=== PATIENT | male | born 1940 | race African-American/Black ===

== ENCOUNTER 2016-10-08 12:53 | Observation (INO) | payer MEDICARE, OTHER ==
[2016-10-08] VITALS (14 sets, daily range): BP systolic 131–162; BP diastolic 61–90; PULSE 65–77; TEMP 97–98.4
[~2016-10-08] VITALS: Ht 180.3 cm; Wt 117.3 kg
[~2016-10-08 12:53] MED LIST: ADALAT CC90 MG PO; ASPIRIN 32325 MG/TAB PO; CLOPIDOGREL75 MG PO; GLUCOTROL10 MG PO; IMDUR60 MG PO; ISOTRATE ER60 MG PO; JANUMET 1000 MG1 TAB; JANUVIA 100MG100 MG PO; JANUVIA100 MG PO; LIPITOR 40MG TA40 MG PO; LISINOPRIL40 MG PO; METFORMIN500 MG PO; MICARDIS HCT 121 TA1 PO; MICARDIS HCT 251 TAB PO; MULTI VITAMINS1 TAB PO; MULTIPLE VITAMI1 CAP PO; NIASPAN500 MG PO; OMEGA 31000 MG PO; OMEGA-31000 MG PO; PLAVIX 75MG TAB75 MG PO; PROCARDIA XL90 MG PO; ZOCOR80 MG PO
[2016-10-08] MEDS ORDERED: OMEGA-31 SGL PO (14:44)
[2016-10-08] MEDS ORDERED: IMDUR 60MG60 MG/TAB PO (14:47)
[2016-10-08] MEDS ORDERED: SYNTHROID0.05 MG/TA PO (15:50)
[2016-10-08] MEDS ORDERED: TOPROL XL 50MG50 MG PO (15:51)
[2016-10-08] MEDS ORDERED: ASPIRIN E.C. 8181 MG PO (15:52)
[2016-10-08] MEDS ORDERED: BYDUREON P2 MG/0.65 (15:53)
[2016-10-08] MEDS ORDERED: NITROSTAT0.4 MG/TAB SL (15:54)
[2016-10-08] MEDS ORDERED: CORTISPORIN OIN15 GM TP (15:55)
[2016-10-08] MEDS ORDERED: LEVEMIR100 U/ML SQ (16:03)
[2016-10-08 22:47] LABS: INFLUENZA B NEGATIVE
[2016-10-09 00:53] LABS: PH 6 (5-8); URINE APPEARANCE Clear; URINE BILIRUBIN Negative (NEGATIVE); URINE BLOOD Negative (NEGATIVE); URINE COLOR Yellow; URINE GLUCOSE Negative (NEGATIVE); URINE KETONE Negative (NEGATIVE); URINE UROBILINOGEN Negative (NEGATIVE)
[2016-10-09 02:38] LABS: SQUAMOUS EPITHELIAL 0-2 /hpf; URINE BACTERIA None Seen /hpf; URINE RBC 0-2 /hpf; URINE WBC 0-2 /hpf
[2016-10-09 03:36] VITALS: BP 152/64; PULSE 77; TEMP 98.4
[2016-10-09 08:42] VITALS: BP 104/72; PULSE 76; TEMP 97.6
[2016-10-09 08:42] LABS: BASO % 0.5 % (0.0-2.0); EOS # 0.2 (0.0-0.7); GRAN # 3.8 (1.4-6.5); HEMATOCRIT 38.9 % (42.0-52.0); LYMPH # 1.1 (1.2-3.4); LYMPH % 19.2 % (20.0-51.0); MEAN CELL VOLUME 87 fl (80.0-100.0); MEAN CORPUSCULAR HEMOGLOBIN 29 pg (27.0-31.0); MEAN CORPUSCULAR HGB CONC 33 g/dl (33.0-37.0); MEAN PLATELET VOLUME 11.8 fl (7.4-10.4); MONO # 0.6 (0.1-0.6); MONO % 9.8 % (1.7-9.3); PLATELET COUNT 136 K/mm3 (130-400); RED BLOOD COUNT 4.49 M/mm3 (4.20-5.60); REDCELL DISTRIBUTION WIDTH-CV 13.1 % (11.5-14.5); WHITE BLOOD COUNT 5.8 K/mm3 (4.8-10.8)
[2016-10-09 08:55] LABS: ADJUSTED CALCIUM 9.6 mg/dL (8.4-10.2); ALBUMIN 3.7 gm/dL (3.5-5.0); BILIRUBIN,TOTAL 0.9 mg/dL (0.0-1.0); CALCIUM 9.4 mg/dL (8.4-10.2); CREATININE, serum 1.15 mg/dL (0.66-1.25); POTASSIUM 4.1 mmol/L (3.4-5.0)
[2016-10-09 09:25] LABS: THYROID STIMULATING HORMONE 3.28 uIU/mL (0.465-4.680)
[2016-10-09] MEDS ORDERED: PLAVIX 75MG TAB75 MG PO (10:29)
[2016-10-09] MEDS ORDERED: PROCARDIA XL90 MG PO (10:31)
[2016-10-09 12:57] VITALS: BP 101/61; PULSE 69; TEMP 98.4
== END 2016-10-09 14:35 | disposition home or self-care (01) ==
LOC: PEDS 12:53 → MEDICAL 12:53 → PEDS 13:40 → MEDICAL 13:40
PROVIDERS: Physician Assistant
DX: R53.83 Other fatigue (principal); I25.10 Atherosclerotic heart disease of native coronary artery without angina pectoris; I10 Essential (primary) hypertension; E78.5 Hyperlipidemia, unspecified; E11.8 Type 2 diabetes mellitus with unspecified complications; Z79.4 Long term (current) use of insulin; E03.9 Hypothyroidism, unspecified
CPT/HCPCS: 99222-AI; C1769; C1887; C1894; G0378; G0379; J1644; J1815; J2250; J3010; J7030; Q9967

== ENCOUNTER → 2021-07-10 | Outpatient (CLI) | payer MEDICARE, OTHER ==
[~2021-07-10] MED LIST changes: +ASPIRIN E.C. 8181 MG PO; +BYDUREON P2 MG/0.65; +CORTISPORIN OIN15 GM TP; +IMDUR 60MG60 MG/TAB PO; +LEVEMIR100 U/ML SQ; +NITROSTAT0.4 MG/TAB SL; +OMEGA-31 SGL PO; +SYNTHROID0.05 MG/TA PO; +TOPROL XL 50MG50 MG PO
== END ==
LOC: COL.VAS 14:01
DX: H47.013 Ischemic optic neuropathy, bilateral (principal); I65.23 Occlusion and stenosis of bilateral carotid arteries

== ENCOUNTER → 2023-08-13 | Outpatient (CLI) | payer MEDICARE, OTHER | LOC: COL.VAS 12:33 | DX: I65.23 Occlusion and stenosis of bilateral carotid arteries (principal); I08.0 Rheumatic disorders of both mitral and aortic valves; H34.9 Unspecified retinal vascular occlusion; H34.219 Partial retinal artery occlusion, unspecified eye ==

== ENCOUNTER 2024-07-28 20:29 | Inpatient (IN) | payer MEDICARE, OTHER ==
[~2024-07-28] VITALS: Ht 177.8 cm; Wt 95.9 kg
[2024-07-28 21:00] LABS: BASO % 0.2 % (0.0-2.0); EOS # 0.1 K/mm3 (0.0-0.7); EOS % 2.2 % (0.0-4.0); GRAN # 3.3 K/mm3 (1.4-6.5); GRAN % 58.9 % (42.2-75.2); HEMATOCRIT 40.7 % (42.0-52.0); LYMPH # 1.5 K/mm3 (1.2-3.4); LYMPH % 27.3 % (20.0-51.0); MEAN CELL VOLUME 93 fl (80.0-100.0); MEAN CORPUSCULAR HEMOGLOBIN 32 pg (27-31); MEAN CORPUSCULAR HGB CONC 34 g/dl (33.0-37.0); MEAN PLATELET VOLUME 10.9 fl (7.4-10.4); MONO # 0.6 K/mm3 (0.1-0.6); MONO % 11.2 % (1.7-9.3); PLATELET COUNT 106 K/mm3 (130-400); RED BLOOD COUNT 4.36 M/mm3 (4.20-5.60); REDCELL DISTRIBUTION WIDTH-CV 12.7 % (11.5-14.5)
[2024-07-28 21:02] LABS: INR 1.1 (0.8-3.0); PROTHROMBIN TIME 11.9 SECONDS (9.7-12.8)
[2024-07-28 21:17] LABS: ALBUMIN 3.8 g/dL (3.4-4.8); BILIRUBIN,TOTAL 0.8 mg/dL (0.2-1.2); CALCIUM 9.1 mg/dL (8.4-10.2); CREATININE, serum 1.26 mg/dL (0.72-1.25); POTASSIUM 4.2 mEq/L (3.5-4.5)
[2024-07-28 21:23] LABS: TROPONIN-I 0.02 ng/mL (0.00-0.033)
[2024-07-28] MEDS ORDERED: LR 1,000 ML IV ONE (21:30)
[2024-07-28] MEDS ORDERED: diphenhydrAMINE 50 MG/ML 1 ML VIAL IV ONE (21:30)
[2024-07-28] MEDS ORDERED: Iohexol 350 - 100 ML VIAL IV ONE (21:32)
[2024-07-28] MEDS ORDERED: NS 100 ML IV ONE (21:33)
[2024-07-28 22:45] LABS: URINE APPEARANCE CLEAR (CLEAR/HAZY); URINE BLOOD NEGATIVE (NEGATIVE); URINE COLOR YELLOW (YELLOW); URINE GLUCOSE NEGATIVE (NEGATIVE); URINE KETONE NEGATIVE (NEGATIVE); URINE NITRATE NEGATIVE (NEGATIVE); URINE PROTEIN(semi-quant) NEGATIVE (NEGATIVE)
[2024-07-28 22:55] LABS: TRICYCLIC ANTIDEPRESS URINE NEGATIVE (NEGATIVE)
[2024-07-28 22:56] LABS: COLLECTION METHOD CLEAN CATCH
[2024-07-29] VITALS (1192 sets, daily range): BP systolic 131–208; BP diastolic 56–93; PULSE 56–76; TEMP 97.3–98.4; O2SAT 77–100
[2024-07-29] MEDS ORDERED: Acetaminophen 325 MG TAB PO PRN ×2 (00:30→03:45)
[2024-07-29] MEDS ORDERED: Docusate Sodium 100 MG CAP PO PRN (00:30)
--- NOTE | 2024-07-29 00:56 | NUR ---
report recived from ED.
[2024-07-29] MEDS ORDERED: hydrALAZINE 20 MG/ML 1 ML VIAL IV ONE ×2 (01:00→20:15)
[2024-07-29] MEDS ORDERED: SYNTHROID0.075 MG/T PO (01:12)
[2024-07-29] MEDS ORDERED: LIPITOR 80MG80 MG PO (01:15)
[2024-07-29] MEDS ORDERED: BYDUREON B2 MG/0.85 SQ (01:17)
[2024-07-29] MEDS ORDERED: REPATHA SU140 MG/1 M SQ (01:17)
[2024-07-29] MEDS ORDERED: HUMIRA40 MG/0.4 SQ (01:18)
[2024-07-29] MEDS ORDERED: niCARdipine 200 ML IV SCH (01:45)
[2024-07-29] MEDS ORDERED: MICARDIS80 MG PO (02:48)
[2024-07-29] MEDS ORDERED: TOPROL XL100 MG PO (02:48)
[2024-07-29] MEDS ORDERED: NS 1,000 ML IV SCH (03:45)
[2024-07-29] MEDS ORDERED: Ondansetron 4 MG/2 ML VIAL IV PRN (03:45)
[2024-07-29] MEDS ORDERED: Dextrose 50% Water 25 GM/50 ML SYRINGE IV PRN (04:00)
[2024-07-29] MEDS ORDERED: Dextrose (Glucose) 15 GM (4 x 3.75 GM) Chewable TABLET PACK PO PRN (04:00)
[2024-07-29] MEDS ORDERED: Glucagon 1 MG VIAL IM PRN (04:00)
[2024-07-29 05:42] LABS: BASO % 0.3 % (0.0-2.0); EOS # 0.1 K/mm3 (0.0-0.7); EOS % 1.4 % (0.0-4.0); GRAN # 4.4 K/mm3 (1.4-6.5); GRAN % 63.6 % (42.2-75.2); HEMOGLOBIN 12.4 g/dl (13.5-18.0); LYMPH # 1.6 K/mm3 (1.2-3.4); LYMPH % 22.9 % (20.0-51.0); MEAN CELL VOLUME 91 fl (80.0-100.0); MEAN CORPUSCULAR HEMOGLOBIN 33 pg (27-31); MEAN CORPUSCULAR HGB CONC 36 g/dl (33.0-37.0); MEAN PLATELET VOLUME 11.1 fl (7.4-10.4); MONO # 0.8 K/mm3 (0.1-0.6); MONO % 11.7 % (1.7-9.3); PLATELET COUNT 93 K/mm3 (130-400); RED BLOOD COUNT 3.82 M/mm3 (4.20-5.60); REDCELL DISTRIBUTION WIDTH-CV 12.6 % (11.5-14.5)
[2024-07-29 05:58] LABS: HEMATOCRIT 34.9 % (42.0-52.0)
[2024-07-29 06:07] LABS: ALBUMIN 3.1 g/dL (3.4-4.8); BILIRUBIN,TOTAL 0.4 mg/dL (0.2-1.2); CALCIUM 8.6 mg/dL (8.4-10.2); CHOLESTEROL RISK RATIO 3.2; CREATININE, serum 1.12 mg/dL (0.72-1.25); POTASSIUM 3.8 mEq/L (3.5-4.5); TOTAL PROTEIN 5.9 g/dl (6.2-8.1)
--- NOTE | 2024-07-29 07:00 | NUR ---
Report recieved from HUANG Brown. Reviewed labs and overnight events. Pt resting in bed with eyes closed. IVF infusing per orders. Call light within reach. Will continue with POC.
[2024-07-29] MEDS ORDERED: Insulin Lispro (HumaLOG) SQ SCH (08:00)
[2024-07-29] MEDS ORDERED: Losartan 50 MG TAB PO SCH (09:00)
[2024-07-29] MEDS ORDERED: Telmisartan 80 MG **** subs to Losartan 100 MG PO SCH (09:00)
[2024-07-29] MEDS ORDERED: Atorvastatin 80 MG TAB PO SCH (09:00)
[2024-07-29] MEDS ORDERED: Omega-3 Fatty Acid Esters (OTC) 1,000 MG CAP PO SCH (09:00)
[2024-07-29] MEDS ORDERED: Multivitamin TAB PO SCH (09:00)
[2024-07-29] MEDS ORDERED: hydroCHLOROthiazide 25 MG TAB PO SCH (09:00)
[2024-07-29] MEDS ORDERED: Clopidogrel 75 MG TAB PO SCH (09:00)
[2024-07-29] MEDS ORDERED: hydrALAZINE 10 MG TAB PO PRN (10:30)
--- NOTE | 2024-07-29 14:15 | NUR ---
Plate Molder met with patient and his , Bambi to discuss discharge planning. Patient lives in [place] and sees Dr. Rogers for primary care. Patient gets medications from [facility]. Patient is independent with ADLS and stated he has a cane that he uses occasionally. Patient reported his , Babmi is his DPOA-HC. Patient advised he plans to return home at time of discharge. SW reviewed PT recommendation for Home Health and provided [email or web address] list of available agencies. Patient unsure on if he is interested at this time but will consider it. Discharge Plan: Home, possible HH
--- NOTE | 2024-07-29 19:30 | NUR ---
PT RESTING IN BED. AFIB ON MONITOR. PT HAS BEEN HTN STARTING LATE AFTERNOON. PT TAKES NOT SCHEDULED ORAL ANTIHYPERTENSIVES AT NIGHT. PT MAY BENEFIT FROM CA++ [facility]. HAS PRN FOR SBP GREATER THAN 180.
--- NOTE | 2024-07-29 20:09 | NUR ---
AT BEDSIDE. SHE HAVE PT A SPONGE BATH AT THE SINK WHILE I CHANGED HIS BEDDING. PT BP ELEVATED, PROVIDER NOTIFIED. DISCUSSED ADDING CA[facility] AT NIGHT. ORDERS RECEIVED. WILL CONTINUE TO MONITOR BP. PT WAS HAD A SHORT RUN OF AFIB. IF IT HAPPENS AGAIN, WILL GET ECG. PT STATES HE WANTS TO GO HOME TOMORROW. WILL TRY TO CONTROL BP WITH PRN AND SCHEDULED MEDICATIONS. DISCUSSED WITH PT THAT I WILL START THE DRIP IF I NEED TO.
[2024-07-29] MEDS ORDERED: amLODIPine 5 MG TAB PO SCH (21:00)
[2024-07-30] VITALS (439 sets, daily range): BP systolic 134–181; BP diastolic 70–89; PULSE 67–75; TEMP 97.3–97.6; O2SAT 78–100
--- NOTE | 2024-07-30 06:05 | NUR ---
PT HYPERTENSIVE AT THE START OF SHIFT. MEDICATIONS ADJUSTED. BLOOD PRESSURE IMPROVED. PT AND SPOUSE STATE THEY WERE NOT AWARE HE HAD A HEART MURMER. PRINTED PATIENT EDUCATION ON: HEART MURMURS, AMLODIPINE, HYDROCHLOROTHIAZIDE & HIGH BLOOD PRESSURE IN ADULTS GIVEN MRS. VERDIN. PT HAS VISION LOSS. THIS NURSE DISCUSSED WITH MR. VERDIN THAT THE REASON HE IS URINATING FREQUENTLY IS BECAUSE OF THE HYDROCHLOROTHIAZIDE. PT STABLE ON ROUNDS. RESPIRATIONS EVEN AND UNLABORED. NO SIGN OF DISTRESS AT THIS TIME. CONTINUE PLAN OF CARE.
--- NOTE | 2024-07-30 07:23 | NUR ---
Report recieved from HUANG Ellis. Reviewed overnight events. No IVF infusing at this time. Pt resting with eyes closed. Call light within reach. Will continue with POC.
[2024-07-30] MEDS ORDERED: Gadoterate 20 ML VIAL IV ONE (09:09)
--- NOTE | 2024-07-30 09:22 | NUR ---
Pt left floor at 0855 for MRI and Echo.
--- NOTE | 2024-07-30 09:46 | NUR ---
Pt returned from MRI and ECHO in room to complete.
[2024-07-30] MEDS ORDERED: hydrALAZINE 25 MG TAB PO SCH (10:01)
[2024-07-30] MEDS ORDERED: NORVASC 10MG10 MG PO (12:19)
[2024-07-30] MEDS ORDERED: HCTZ 25MG TAB25 MG PO (12:19)
[2024-07-30] MEDS ORDERED: APRESOLINE 10MG10 MG PO (12:22)
--- NOTE | 2024-07-30 12:34 | NUR ---
D: Municipal Clerk stopped by room on rounds. A: Pt was resting and content. Pt is retired and worked many years at [employer]. Pt appreciated the visit. No needs right now. P: Municipal Clerk informed pt that if he needed anything from the electroplater automatic area to let his nurse know. Municipal Clerk will follow up as needed.
--- NOTE | 2024-07-30 14:15 | NUR ---
Discharge instructions provided. Education about new medications provided. Unable to make follow up appoinments, stressed importance of scheudling f/u next week. Pt and verbalized understanding. INT discontinued. Pt escorted out via wheelchair.
[2024-07-30] MEDS ORDERED: amLODIPine 10 MG TAB PO SCH (21:00)
== END 2024-07-30 13:57 | disposition home or self-care (01) | DRG 305 ==
LOC: COL.ER 20:29 → ICU 07-29 00:07 → MEDICAL 07-29 00:07 → COL.ER 07-29 00:07 → ICU 07-29 01:34
PROVIDERS: Emergency Medicine; Nurse Practitioner Family; ADMIT Internal Medicine
DX: I16.1 Hypertensive emergency (principal); E87.20 Acidosis, unspecified; E78.5 Hyperlipidemia, unspecified; I25.10 Atherosclerotic heart disease of native coronary artery without angina pectoris; Z95.5 Presence of coronary angioplasty implant and graft; M06.9 Rheumatoid arthritis, unspecified; E03.9 Hypothyroidism, unspecified; Z79.890 Hormone replacement therapy; Z79.82 Long term (current) use of aspirin; Z87.891 Personal history of nicotine dependence; H54.7 Unspecified visual loss; E11.22 Type 2 diabetes mellitus with diabetic chronic kidney disease; I12.9 Hypertensive chronic kidney disease with stage 1 through stage 4 chronic kidney disease, or unspecified chronic kidney disease; N18.9 Chronic kidney disease, unspecified
CPT/HCPCS: A9575; J0360; J1200; J1815; J1920; J2765; J7030; J7120; Q9967